=== PATIENT | female | born 1980 | race Caucasian/White ===

== ENCOUNTER 2017-10-12 18:08 | Emergency (ER) | payer OTHER ==
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
[2017-10-12 18:34] VITALS: BP 105/59; PULSE 99; TEMP 99; BMI 34.0
[2017-10-12] MEDS ORDERED: ACETAMINOPHEN 325 MG TABLET (FP) PO ONE (19:04)
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
[2017-10-12] MEDS ORDERED: ACETAMINOPHEN 325 MG TABLET (FP) ONE (19:17)
== END 2017-10-12 20:13 | disposition home or self-care (01) ==
LOC: JERFT 18:08
DX: O99.89 Other specified diseases and conditions complicating pregnancy, childbirth and the puerperium (principal); S16.1XXA Strain of muscle, fascia and tendon at neck level, initial encounter; M25.531 Pain in right wrist; Z3A.31 31 weeks gestation of pregnancy; V43.62XA Car passenger injured in collision with other type car in traffic accident, initial encounter; Y92.411 Interstate highway as the place of occurrence of the external cause; Y93.89 Activity, other specified; Y99.8 Other external cause status; Z59.0 Homelessness
CPT/HCPCS: 73110-TC-RT-FY; 73130-TC-RT-FY; 99281-25